=== PATIENT | male | born 1975 | race Caucasian/White ===

== ENCOUNTER 2025-05-25 06:11 | Day surgery (SDC) | payer BC, SELFPAY | END 2025-05-25 11:25 | disposition home or self-care (01) | LOC: GI 06:11 | PROVIDERS: ATTENDING PHYSICIAN Internal Medicine Gastroenterology | DX: Z12.11 Encounter for screening for malignant neoplasm of colon (principal); K64.8 Other hemorrhoids; D12.2 Benign neoplasm of ascending colon; D12.8 Benign neoplasm of rectum | CPT/HCPCS: 45385; 88305 ==